=== PATIENT | female | born 1990 | race Caucasian/White ===

== ENCOUNTER 2016-11-06 00:44 | Emergency (ER) | payer SELFPAY ==
[~2016-11-06] VITALS: Ht 182.9 cm; Wt 90.7 kg
--- NOTE | 2016-11-06 00:44 | NUR ---
[facility] TO ER OF1
[2016-11-06 00:49] VITALS: BP 100/58
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
[2016-11-06] MEDS ORDERED: IBUPROFEN 800 MG TAB PO ONE (01:15)
--- NOTE | 2016-11-06 01:15 | NUR ---
Patient being evaluated by DR. BACON at bedside.
[2016-11-06 03:13] VITALS: BP 101/52
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
== END 2016-11-06 03:13 ==
LOC: MED 00:44
DX: Z02.89 Encounter for other administrative examinations (principal); R51 Headache; R68.84 Jaw pain; J45.909 Unspecified asthma, uncomplicated; F41.0 Panic disorder [episodic paroxysmal anxiety]; Z88.8 Allergy status to other drugs, medicaments and biological substances
CPT/HCPCS: 70450; 70486; 99284